=== PATIENT | male | born 1980 | race Caucasian/White ===

== ENCOUNTER 2021-10-27 08:38 | Emergency (ER) | payer OTHER ==
[~2021-10-27] VITALS: Ht 182.9 cm; Wt 88.5 kg
== END 2021-10-27 09:53 | disposition home or self-care (01) ==
LOC: ER 08:38
DX: S81.812A Laceration without foreign body, left lower leg, initial encounter (principal); X58.XXXA Exposure to other specified factors, initial encounter; Y93.89 Activity, other specified; Y92.89 Other specified places as the place of occurrence of the external cause; Y99.9 Unspecified external cause status